=== PATIENT | female | born 2000 | race Caucasian/White ===

== ENCOUNTER 2022-06-16 20:40 | Emergency (ER) | payer MEDICAID, SELFPAY ==
[2022-06-16 20:42] VITALS: BP 130/101; PULSE 104; RESP 12; TEMP 36.8; O2SAT 98
--- NOTE | 2022-06-16 20:45 | DI.RAD_ITS ---
Exam(s) XR HAND RT COMPLETE EXAM: XR HAND RT COMPLETE CLINICAL HISTORY: Crush injury. TECHNIQUE: 2D digital imaging was performed of the right hand. Images were obtained. AP, lateral and oblique views were obtained. COMPARISON: No exams were available for comparison FINDINGS: BONES: No acute fracture is present. No bony destructive lesion is seen. 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 JOINTS: No dislocation present. SOFT TISSUE: Normal. IMPRESSION: Unremarkable radiographs of the right hand. DATA REPOSITORY: RADIATION DOSE DELIVERED:
--- NOTE | 2022-06-16 21:00 | W.ED.GENAD ---
Discharge Plan Disposition Patient Disposition: Home Condition: Stable Discharge Details Clinical Impression: Crushing injury of finger of right hand ED Provider: Sary Rendon Discharge Instructions Instructions: Acute Wound Care (ED) Additional Instructions: Keep clean and dry. You may wash under running soap and water daily. You were given a tetanus booster today. No evidence of fractures or broken bones on the x-ray. Return for any signs of infection including red streaks, drainage or swelling. Please take Tylenol or Ibuprofen with food every 4-6 hours as needed for pain and swelling. Follow up with primary care provider in 3-5 days. Return to ED sooner if any worsening or concerns. Increase oral fluids. Medical Decision Making 21-year-old female presents to the ER with a chief complaint of right middle finger crush injury which occurred just prior to arrival. Patient accidentally closed her finger in a trunk door of a car. She does have some swelling that is small laceration noted to the distal tip of her middle finger. Denies any wrist pain or any other injuries. Is unsure of her tetanus vaccination status. X-ray hand ordered to rule out fracture, wound care, and tetanus booster, and urine test. This text was generated using [employer] dictation system, please disregard any oddities of phrase or misspellings. Imaging Data Radiologic Study: Imaging: X-Ray Radiologist's impression: TECHNIQUE: Imaging protocol: Radiologic exam of the right hand. Views: 3 or more views. COMPARISON: No relevant prior studies available. FINDINGS: Bones/joints: Normal. Soft tissues: Normal. IMPRESSION: No acute findings. Thank you for allowing us to participate in the care of your patient. Dictated and Authenticated by: Rodriguez Michael MD [facility] General Mode of arrival: ambulatory. Date/Time Provider Initiated Documentation: 06/16/22 20:57. Limitations to Documentation: no limitations. Information obtained by: patient, RN notes reviewed and old records reviewed. HPI Narrative: 21-year-old female presents to the ER with a chief complaint of right middle finger crush injury which occurred just prior to arrival. Patient accidentally closed her finger in a trunk door of a car. She does have some swelling that is small laceration noted to the distal tip of her middle finger. Denies any wrist pain or any other injuries. Is unsure of her tetanus vaccination status. Related Data Allergies Allergy/AdvReac Type Severity Reaction Status Date / Time No Known Allergies Allergy Unverified 06/16/22 20:52 General Stated Complaint: Laceration WOO: 4 Review of Systems All systems reviewed & are unremarkable except as noted in HPI and below Integumentary/Breasts Skin/Breast: Reports as per HPI and Reports wounds PFSH All Active Problems (Updated 06/16/22 @ 21:50 by Sary Rendon NP) Crushing injury of finger of right hand (Acute) Social History Smoking/Tobacco Use Status: Current every day Tobacco Type: e-cigarettes Smoking risk assessment performed?: Yes Alcohol Intake: current Alcohol Intake frequency: 3 or more drinks per day Substance use type: marijuana Do you feel safe at home: Yes Do you feel safe in your relationship?: Yes Exam Extrem Right upper extremity: hand Details: swelling and laceration 3rd digit dorsal aspect distal Details: puncture Hand/finger images: 1. Small puncture wound 2. Small puncture wound Course Vital Signs Vital signs: Vital Signs Temperature 36.8 C 06/16/22 20:42 Pulse 104 H 06/16/22 20:42 Respiratory Rate 12 06/16/22 20:42 Blood Pressure 130/101 H 06/16/22 20:42 Pulse Oximetry 98 06/16/22 20:42 Temperature 36.8 C 06/16/22 20:42 Temperature Source Oral 06/16/22 20:42 Pulse 104 H 06/16/22 20:42 Respiratory Rate 12 06/16/22 20:42 Respiratory Effort Normal 06/16/22 20:49 Blood Pressure 130/101 H 06/16/22 20:42 Blood Pressure Position Sitting 06/16/22 20:42 Pulse Oximetry 98 06/16/22 20:42 Oxygen Delivery Method Room Air 06/16/22 20:42 Oxygen Flow Rate 0 06/16/22 20:42 Pain Level 10 06/16/22 20:42 PAWSS Have you Been Recently Intoxicated or Drunk Within the Last 30 days?: Yes Have you Ever Experienced Previous Episodes of Alcohol Withdrawal?: Yes Have you ever Experienced Withdrawal Seizures?: No Have you ever Experienced Delirium Tremens(DT)s?: Yes Have you ever undergone Alcohol Rehabilitation Treatment (i.e, inpt ot outpatient treatment programs)?: Yes Have you ever Experienced Blackouts?: Yes Have you ever Combined Alcohol with other Downers within the last 90 days?: No Have you ever Combined Alcohol with any other Substance of Abuse during the last 90 days?: Yes Positive Blood Alcohol level on Presentation? [PCS.BAL]: Yes Evidence of Increased Autonomic Activity (i.e. HR>120, tremor, sweating, agitation, nausea)?: No Result: 8
--- NOTE | 2022-06-16 21:43 | DI.VRAD_ITS ---
PROCEDURE INFORMATION: Exam: XR Right Hand Exam date and time: 06/16/2022 9:35 PM Age: 21 years old Clinical indication: Pain and injury or trauma; Other: Crush injury; Crushing; Right; Middle finger; Hand; Injury details: Per PT: Closed in trunk of car TECHNIQUE: Imaging protocol: Radiologic exam of the right hand. Views: 3 or more views. COMPARISON: No relevant prior studies available. FINDINGS: Bones/joints: Normal. Soft tissues: Normal. IMPRESSION: No acute findings. Dictated and Authenticated by: Rodriguez Michael MD. Ordering:LACIE Okeefe MD
== END 2022-06-16 22:03 | disposition home or self-care (01) ==
LOC: ER 22:07
PROVIDERS: Emergency Provider Registered Nurse Emergency
DX: S67.192A Crushing injury of right middle finger, initial encounter (principal); S61.212A Laceration without foreign body of right middle finger without damage to nail, initial encounter; W23.0XXA Caught, crushed, jammed, or pinched between moving objects, initial encounter
CPT/HCPCS: 81025; 90471; 99283; 73130

== ENCOUNTER 2022-07-23 01:44 | Emergency (ER) | payer MEDICAID, SELFPAY ==
[2022-07-23 01:43] VITALS: BP 131/70; PULSE 91; RESP 17; TEMP 37.5; O2SAT 99
--- NOTE | 2022-07-23 01:49 | W.ED.GENAD ---
Discharge Plan Disposition Patient Disposition: Home Condition: Good Discharge Details Clinical Impression: Viral URI, COVID-19 Primary Care Provider: None,None ED Provider: Phillip Valdes Discharge Instructions Instructions: Upper Respiratory Infection (ED), COVID-19 (Coronavirus Disease 2019) (ED) Additional Instructions: At this time your symptoms are concerning for coronavirus. Please drink plenty fluids, stay well-hydrated and get plenty of rest. Please take Tylenol and Motrin as needed for fever or chills. Please also take vitamin C and zinc while symptomatic to help with near resolution of your symptoms. We will contact you with the PCR results of your COVID/flu/RSV. I have extensively reviewed the treatment plan and discharge instructions with the patient. I have addressed all patient concerns at this time. The patient was made aware of what symptoms to monitor for that would warrant a return to the emergency department. Discussed the plan with the patient, they demonstrate verbal understanding and agreement with our assessment and plan at this time. The documentation in this chart was dictated using [employer] dictation software. Please excuse any dictation errors. Stand Alone Forms: Work Release Medical Decision Making 22-year-old female with no significant past medical history who presents today for medical evaluation. Patient states that over the last 3 to 4 days she has had congestion, fever, loss of taste, and a few intermittent episodes of vomiting and diarrhea. She does work at [employer]. When she lost her taste she tested herself for COVID, and this was positive. She states that she has had COVID and the shots a few times already. Last episode of any antigen interaction was June 2021. There are other sick contacts at home with identical symptoms. The patient called EMS, EMS noted no vital sign abnormalities but at patient request the patient was brought to the ER for further assessment. Patient denies any chest pain or shortness of breath. She denies any neck pain or stiffness. She is able to keep fluids down at this stage. No other complaints at this time. No other modifying factors. Physical exam demonstrates a well-appearing female, no significant erythema in the posterior pharynx, no nuchal rigidity or neck stiffness. Lungs are notably clear, oxygenation is excellent. Vital signs notably stable with no hypoxemia, tachycardia, hypotension. Patient looks notably clinically well. Suspect potential mild COVID. Patient has no sick clonal antibody therapy or Paxlovid. I did discuss risks and benefits of taking Paxlovid at this stage after she has 3 to 4 days of symptoms already, with her young age in general. The risks and benefits the decision has been made to hold off on Paxlovid for the time being. I have recommended continued fluids at home, [id number] zinc and vitamin C as needed. Recommend continue Tylenol and Motrin. We will give a shot of Toradol here. Patient stable for discharge. No evidence of acute life-threatening etiology at this time based on clinical exam and history. I have extensively reviewed the treatment plan and discharge instructions with the patient. I have addressed all patient concerns at this time. The patient was made aware of what symptoms to monitor for that would warrant a return to the emergency department. Discussed the plan with the patient, they demonstrate verbal understanding and agreement with our assessment and plan at this time. The documentation in this chart was dictated using [employer] dictation software. Please excuse any dictation errors. Patient's COVID test is positive. Patient was informed of these results. HPI General Date/Time Provider Initiated Documentation: 07/23/22 01:48. HPI Narrative: 22-year-old female with no significant past medical history who presents today for medical evaluation. Patient states that over the last 3 to 4 days she has had congestion, fever, loss of taste, and a few intermittent episodes of vomiting and diarrhea. She does work at [employer]. When she lost her taste she tested herself for COVID, and this was positive. She states that she has had COVID and the shots a few times already. Last episode of any antigen interaction was June 2021. There are other sick contacts at home with identical symptoms. The patient called EMS, EMS noted no vital sign abnormalities but at patient request the patient was brought to the ER for further assessment. Patient denies any chest pain or shortness of breath. She denies any neck pain or stiffness. She is able to keep fluids down at this stage. No other complaints at this time. No other modifying factors. Related Data Allergies Allergy/AdvReac Type Severity Reaction Status Date / Time No Known Allergies Allergy Unverified 06/16/22 20:52 General Stated Complaint: Fever WOO: 4 Review of Systems All systems reviewed & are unremarkable except as noted in HPI and below PFSH All Active Problems (Updated 07/23/22 @ 02:58 by Phillip Valdes DO) Viral URI (Acute) COVID-19 (Acute) Social History Smoking/Tobacco Use Status: Current every day Tobacco Type: e-cigarettes Smoking risk assessment performed?: Yes Alcohol Intake: current Alcohol Intake frequency: 3 or more drinks per day Drug use: Occasionally Substance use type: marijuana Do you feel safe at home: Yes Do you feel safe in your relationship?: Yes Exam Narrative Exam Narrative: 1.Const: Well-nourished, Well-developed, appearing stated age 2.Eyes: PERRL, no conjunctival injection, and symmetrical lids. 3.ENT: Atraumatic external nose and ears. Moist MM. Neck: Symmetric, trachea midline, No thyromegaly. Patient demonstrates good movement of cervical neck. There is no nuchal rigidity, no nuchal tenderness. Patient is able to flex the neck without any difficulty or significant pain. Negative Kernig's and Brudzinski sign. 4.CVS: +S1/S2, No murmurs or gallops. Peripheral pulses 2+ and equal in all extremities. Brisk capillary refill in all extremities. 5.RESP: Unlabored respiratory effort. Clear to auscultation bilaterally. No wheezes rales or rhonchi 6.GI: Soft, Nontender/Nondistended, No hepatosplenomegaly. No guarding or rebound. 7.MSK: Normocephalic/Atraumatic, Extremities w/o deformity or ttp No cyanosis or clubbing, Normal movement of all extremities 8.Skin: Warm, Dry. No significant rashes or lesions. There are some dry skin on the arms, but no evidence of hives. Negative Nikolsky sign. No large vesicles or bulla. No palpable purpura. No oral lesions. No mucosal lesions. No evidence of severe cellulitis. No evidence of vaccine preventable rash. 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 Sensation grossly intact, no focal neurologic deficits. 10.Psych: (AAO) x3. Appropriate mood and affect Course Vital Signs Vital signs: Vital Signs Temperature 37.5 C 07/23/22 01:43 Pulse 91 H 07/23/22 01:43 Respiratory Rate 17 07/23/22 01:43 Blood Pressure 131/70 07/23/22 01:43 Pulse Oximetry 99 07/23/22 01:43 Temperature 37.5 C 07/23/22 01:43 Temperature Source Tympanic 07/23/22 01:43 Pulse 91 H 07/23/22 01:43 Respiratory Rate 17 07/23/22 01:43 Respiratory Effort Normal 07/23/22 01:46 Blood Pressure 131/70 07/23/22 01:43 Pulse Oximetry 99 07/23/22 01:43 Oxygen Delivery Method Room Air 07/23/22 01:43 Oxygen Flow Rate 0 07/23/22 01:43 Pain Level 3 07/23/22 01:43
[2022-07-23] MEDS: Ketorolac 30 MG/ML VIAL IM (01:57)
[2022-07-23 02:29] LABS: Influenza A PCR Negative (Negative); Influenza B PCR Negative (Negative); RSV PCR Negative (Negative)
[2022-07-23 02:30] LABS: COVID-19 PCR Positive (Negative); Source Nasopharynx
--- NOTE | 2022-07-23 11:48 | NUR.NOTE ---
Nursing Note: Accessed pt chart to print the discharge instructions and work note. PT asked to have them printed again, she lost them on her way home last night. I printed the instructions and work note, and Dr. Phillips signed the work note. Given to Access for pickup.
== END 2022-07-23 02:31 | disposition home or self-care (01) ==
LOC: ER 02:47
PROVIDERS: Emergency Provider Student in an Organized Health Care Education/Training Program
DX: U07.1 COVID-19 (principal); J06.9 Acute upper respiratory infection, unspecified
CPT/HCPCS: 87637; 96372; 99284; J1885

== ENCOUNTER 2022-08-25 17:51 | Emergency (ER) | payer MEDICAID, SELFPAY ==
[2022-08-25 17:58] VITALS: BP 108/53; PULSE 59; RESP 16; TEMP 37; O2SAT 100
[2022-08-25] MEDS: Normal Saline 1,000 ML 1000 ML IV (18:28)
[2022-08-25] MEDS: Ondansetron 4 MG/2 ML VIAL IVP (18:29)
[2022-08-25 18:32] LABS: Bilirubin Small (Negative); Blood Negative (Negative); Clarity Clear (Clear); Glucose Negative (Negative); Ketones Negative (Negative); Leukocyte Esterase Negative (Negative); Nitrite Negative (Negative); Specific Gravity >= 1.030 (1.005-1.025); Urobilinogen 0.2 mg/dL (Up to 0.2); pH 5.5 (5-8)
[2022-08-25 18:48] LABS: Bacteria Negative HPF (Negative); C & S Indicated? No; Casts Negative LPF (Negative); Crystals Negative HPF (Negative); Epithelial Cells Rare HPF (Negative); Mucus Heavy (Negative); RBC 0-2 HPF (0-2); WBC 0-2 HPF (0-5)
--- NOTE | 2022-08-25 18:50 | NUR.NOTE ---
Nursing Note: patient and boyfriend told this RN they are currently experiencing homelessness she said they are floating around. This RN gave patient community connections phone number and address and advised her to go to them for resources.
--- NOTE | 2022-08-25 19:39 | ED.GENADUL_ITS ---
Discharge Plan Disposition Patient Disposition: Home Condition: Stable Discharge Details Clinical Impression: Gastroenteritis ED Provider: Evon Carpio Home Meds and New Rx's Prescriptions: New Ondansetron Odt, 3 Tabs/Btl [Zofran Odt, 3 Tabs/Btl] 4 mg PO DISPENSE Qty: 0 0RF Discharge Instructions Instructions: Gastroenteritis (ED) Additional Instructions: Continues ondansetron as directed if needed for ongoing nausea and vomiting Can use [id number] antidiarrheal medications as directed Clear liquids advance as tolerated push fluids drinking at least 6 to 8 glasses of water or more daily to stay well-hydrated Referrals: Gayla,Local [ NON-[facility] STAFF PHYSICIAN] - (Follow-up with your primary care provider if needed return here sooner for new or worsening symptoms) Discharge Data Discharge Date/Time-TO BE ENTERED AT DEPARTURE: 08/25/22 20:13 Medical Decision Making <Evon Carpio NP - Last Filed: 08/25/22 20:01> Patient presents with 3 to 4 days of nausea vomiting and diarrhea concern for dehydration. She is hemodynamically stable. Will obtain IV access give a liter normal saline with Zofran 4 mg IV push check UA urine . Her physical exam is reassuring. She responds to the fluids and Zofran with improvement in her symptoms. She was given p.o. challenge and is able to tolerate. Hemodynamically remained stable while being monitored in the emergency department. She feels improved and ready for discharge to home she will be given Zofran 4 mg 3 tabs for home use advised to see PCP or return here sooner for new or worsening symptoms Medical Records Medical records reviewed: Yes I reviewed the patient's medical records. Lab Data Lab results reviewed: Yes I reviewed the patient's lab results. Labs: Laboratory Tests Range/Units 08/25/22 18:16 Urine Color (Yellow) Yellow Urine Clarity (Clear) Clear Urine pH (5-8) 5.5 Ur Specific [place] (1.005-1.025) >= 1.030 H Urine Protein (Negative) mg/dL Trace H Urine Ketones (Negative) mg/dL Negative Urine Blood (Negative) Negative Urine Nitrite (Negative) Negative Urine Bilirubin (Negative) Small H Urine Urobilinogen (Up to 0.2) mg/dL 0.2 Ur Leukocyte Esterase (Negative) Negative Urine RBC (0-2) HPF 0-2 Urine WBC (0-5) HPF 0-2 Ur Epithelial Cells (Negative) HPF Rare Urine Crystals (Negative) HPF Negative Urine Bacteria (Negative) HPF Negative Urine Casts (Negative) LPF Negative Urine Mucus (Negative) Heavy Ur Culture Indicated? No Urine Glucose (Negative) mg/dL Negative <Lb Vigil MD - Last Filed: 10/21/22 09:01> Note: I did not evaluate this patient. I did not participate in the care of this patient. This medical record was inappropriately assigned to me. I notified [facility] and medical records and chart could not be unassigned. HPI <Evon Carpio NP - Last Filed: 08/25/22 20:01> General Mode of arrival: ambulatory . Date/Time Provider Initiated Documentation: 08/25/22 17:54 . Limitations to Documentation: no limitations . Information obtained by: patient . HPI Narrative: Patient presents with a 3-day history of nausea vomiting diarrhea she denies fever. She denies any recent sick contacts with similar symptoms. She is unable to keep down any oral fluids. Denies abdominal pain chest pain lightheadedness Related Data Home Medications Medication Instructions Recorded Confirmed Ondansetron ODT, 3 tabs/btl 4 mg PO DISPENSE ##0 08/25/22 [Zofran ODT, 3 tabs/btl] Previous Rx's Medication Instructions Recorded Ondansetron ODT, 3 tabs/btl 4 mg PO DISPENSE ##0 08/25/22 [Zofran ODT, 3 tabs/btl] Allergies Allergy/AdvReac Type Severity Reaction Status Date / Time No Known Allergies Allergy Unverified 08/25/22 18:05 General Stated Complaint: Nausea/Vomit/Diar WOO: 3 Review of Systems <Evon Carpio NP - Last Filed: 08/25/22 20:01> All systems reviewed & are unremarkable except as noted in HPI and below PFSH <Evon Carpio NP - Last Filed: 08/25/22 20:01> All Active Problems (Updated 10/12/22 @ 00:01 by VICENTE RUIZ) COVID-19 (Acute) Social History Smoking/Tobacco Use Status: Current every day Tobacco Type: cigarettes Smoking risk assessment performed?: Yes Alcohol Intake: current Alcohol Intake frequency: 3 or more drinks per day Drug use: Occasionally Substance use type: marijuana Housing: homeless Do you feel safe at home: Yes Do you feel safe in your relationship?: Yes Additional Social history: homeless right now bouncing from place to place Exam <Evon Carpio NP - Last Filed: 08/25/22 20:01> Const General: ill appearing acutely Nutritional Appearance: overweight Orientation: alert, awake and oriented x3 HENMT Head: normal to inspection, normocephalic and atraumatic Mouth: moist mucous membranes abnormal (Dry oral mucosa) Neck Neck: normal visual inspection Resp Effort & Inspection: normal respiratory effort Auscultation: clear to auscultation bilaterally Cardio Rate: regular rate Rhythm: regular rhythm GI Inspection: normal to inspection Palpation: soft and nontender Skin General skin exam: no rashes or lesions noted Neuro General: patient alert, patient awake, patient oriented x3 and no focal motor deficits Extrem General: normal to inspection and full ROM Course <Evon Carpio NP - Last Filed: 08/25/22 20:01> Vital Signs Vital signs: Vital Signs Temperature 37.0 C 08/25/22 17:58 Pulse 59 L 08/25/22 17:58 Respiratory Rate 16 08/25/22 17:58 Blood Pressure 108/53 L 08/25/22 17:58 Pulse Oximetry 100 08/25/22 17:58 Temperature 37.0 C 08/25/22 17:58 Temperature Source Oral 08/25/22 17:58 Pulse 59 L 08/25/22 17:58 Respiratory Rate 16 08/25/22 17:58 Respiratory Effort Normal, Non-Labored 08/25/22 18:02 Blood Pressure 108/53 L 08/25/22 17:58 Blood Pressure Position Sitting 08/25/22 17:58 Pulse Oximetry 100 08/25/22 17:58 Oxygen Delivery Method Room Air 08/25/22 17:58 Oxygen Flow Rate 0 08/25/22 17:58 Lab/Test Results Lab/Test Results: Laboratory Tests Range/Units 08/25/22 18:16 Urine Color (Yellow) Yellow Urine Clarity (Clear) Clear Urine pH (5-8) 5.5 Ur Specific [place] (1.005-1.025) >= 1.030 H Urine Protein (Negative) mg/dL Trace H Urine Ketones (Negative) mg/dL Negative Urine Blood (Negative) Negative Urine Nitrite (Negative) Negative Urine Bilirubin (Negative) Small H Urine Urobilinogen (Up to 0.2) mg/dL 0.2 Ur Leukocyte Esterase (Negative) Negative Urine RBC (0-2) HPF 0-2 Urine WBC (0-5) HPF 0-2 Ur Epithelial Cells (Negative) HPF Rare Urine Crystals (Negative) HPF Negative Urine Bacteria (Negative) HPF Negative Urine Casts (Negative) LPF Negative Urine Mucus (Negative) Heavy Ur Culture Indicated? No Urine Glucose (Negative) mg/dL Negative POC- Test(urine) Negative
[2022-08-25 20:10] VITALS: BP 114/67; PULSE 89; RESP 18; O2SAT 100
[2022-08-25] MEDS: Ondansetron O.D.T. 4 MG TABEF, 3 TABS/BTL PO (20:10)
== END 2022-08-25 20:13 | disposition home or self-care (01) ==
PROVIDERS: Emergency Provider Nurse Practitioner Acute Care
DX: K52.9 Noninfective gastroenteritis and colitis, unspecified (principal); R11.2 Nausea with vomiting, unspecified
CPT/HCPCS: 81025; 96361; 96374; 99284; 81003; 81015; J2405

== ENCOUNTER 2022-09-11 20:55 | Emergency (ER) | payer MEDICAID, SELFPAY ==
[2022-09-11 20:59] VITALS: BP 105/80; PULSE 106; RESP 18; TEMP 36.7; O2SAT 98
--- OUTSIDE RECORDS SUMMARY | 2022-09-11 21:02 | XMS_ITS | CCD ---
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 Allergies Allergy Code Allergy Type Reaction Status No Known Environmental Allergies 0 No known envir onmental allergies Active No Known Food Allergies 0 No known food allergies Active No Known Drug Allergies 0 No known drug allergies Active Procedures Unknown or Not Available. History of Immunizations Unknown or Not Available. Problems Problem Code Start Date Resolved Date Status Irritable bowel syndrome [id number] Active Results COMPREHENSIVE METABOLIC PANE L (CMP) - Collect Date/Time: 01/16/2022 16:04 Test Name Code Test Result Test Units Test Ref Rang e GLUCOSE 2345-7 119 mg/dL L=70 H=116 BUN 3094-0 13 mg/dL L=6 H=25 CREATININE 2160-0 0.71 mg/dL L=0.51 H=0.95 SODIUM SERUM 2951-2 137 mmol/L L=136 H=145 POTASSIUM SERUM 2823-3 3.7 mmol/L L=3.4 H=5 .2 CHLORIDE SERUM 2075-0 102 mmol/L L=96 H=110 CARBON DIOXIDE (CO2) 2028-9 24 mmol/L L=22 H=34 ANION GAP 51297-2 10.9 mmol/L CALCIUM SERUM 81916-8 8.9 mg/dL L=8.2 H=10. 2 BILIRUBIN TOTAL 1975-2 0.4 mg/dL L=0.0 H=1 .3 ALK. PHOS. 6768-6 77 U/L L=46 H=116 SGOT (AST) 1920-8 20 U/L L=15 H=37 SGPT (ALT) 1742-6 32 U/L L=12 H=78 TOTAL PROTEIN 2885-2 7.8 gm/dL L=6.0 H=8.0 ALBUMIN 1751-7 3.5 gm/dL L=3.4 H=5.0 AGE 21 years eGFR (non-Afr.Amer.) 16268-2 106 mL/min eGFR (Afr-Azerbaijani) 07506-4 >120 mL/min CBC W/ DIFFERENTIAL* - Colle ct Date/Time: 01/16/2022 16:04 Test Name Code Test Result Test Units Test Ref Rang e WBC 6690-2 7.53 th/cmm L=5.00 H=10.00 NEUT % 59.3 % L=40.0 H=80.0 LYMPH % 32.5 % L=10.0 H=50.0 MONO % 24984-8 4.6 % L=2.0 H=12.0 EOS % 3.1 % L=0.0 H=8.0 BASO % 0.4 % L=0.0 H=3.0 IG % 2514-8 0.1 % L=0.0 H=1.1 NRBC % 65836-3 0.0 % L=0.0 H=0.0 NEUT abs count 751-8 4.5 th/cmm L=1.6 H=8. 4 LYMPH abs count 731-0 2.5 th/cmm L=1.5 H=4 .0 MONO abs count 742-7 0.4 th/cmm L=0.2 H=1. 0 EOS abs count 711-2 0.2 th/cmm L=0.0 H=0.5 BASO abs count 704-7 0.0 th/cmm L=0.0 H=0. 2 IG abs count 72549-1 0.0 th/cmm L=0.0 H=0.1 NRBC abs count 27594-2 0.0 mil/cmm L=0.0 H=0. 0 RBC 789-8 4.45 mil/cmm L=3.90 H=5.40 HEMOGLOBIN 718-7 12.3 gm/dL L=12.0 H=16.0 HEMATOCRIT 4544-3 38 % L=37 H=47 MCV 787-2 85 fL L=82 H=92 MCH 785-6 27.6 pg L=27.0 H=31.0 MCHC 786-4 32.5 % L=32.0 H=36.0 RDW-SD 788-0 42.2 fL L=39.0 H=49.0 PLATELET COUNT 777-3 265 th/cmm L=150 H=45 0 GGT (GAMMA GLUTAMYL TRANSFER ASE) - Collect Date/Time: 01/16/2022 16:04 Test Name Code Test Result Test Units Test Ref Rang e Gamma GT 23 N/A <44 HEP A TOTAL ANTIBODY WITH RE FLEX* - Collect Date/Time: 01/16/2022 16:04 Test Name Code Test Result Test Units Test Ref Rang e Hep A Total Ab withReflex Positive N/A Negative HEP B CORE ANTIBODY TOTAL - Collect Date/Time: 01/16/2022 16:04 Test Name Code Test Result Test Units Test Ref Rang e Hep B Core Antibody Negative N/A Negat abi HEP B SURF ANTIBODY* - Colle ct Date/Time: 01/16/2022 16:04 Test Name Code Test Result Test Units Test Ref Rang e HBs Antibody, Quant 7.3 mIU/mL See N ote Hep B Surface Ab Negative N/A See Note HEP B SURF ANTIGEN* - Collec t Date/Time: 01/16/2022 16:04 Test Name Code Test Result Test Units Test Ref Rang e Hep B Surface Ag Negative N/A Negative HIV 1/2 ANTIGEN AND ANTIBODY SCREEN - Collect Date/Time: 01/16/2022 16:04 Test Name Code Test Result Test Units Test Ref Rang e HIV 1/2 Antigen andAntibody Negative N/A Negative Active Medications Unknown or Not Available. Medications Administered During Visit Unknown or Not Available. Encounters Unknown or Not Available. Social History Smoking Status Code Start Date End Date Unknown if ever smoked [id number] Patient Decision Aids Unknown or Not Available. Discharge Instructions You were admitted to [facility] on 01/16/2022 15:50 You had the following tests done:CBC W/ DIFFERENTIAL*COMPREHENSIVE METABOLIC PANEL (CMP)GGT (GAMMA GLUTAMYL TRANSFERASE)HEP A TOTAL ANTIBODY WITH REFLEX*HEP B CORE ANTIBODY TOTALHEP B SURF ANTIBODY*HEP B SURF ANTIGEN*HIV 1/2 ANTIGEN AND ANTIBODY SCREEN You were discharged from [facility] Should you have any questions prior to discharge, please contact a member of your healthcare team. If you have left the hospital and have any questions, please contact your primary care physician. Chief Complaint and Reason For Visit Unknown or Not Available. Function Status Unknown or Not Available. Plan of Care Unknown or Not Available. Referral/Transition of Care Unknown or Not Available.
--- OUTSIDE RECORDS SUMMARY | 2022-09-11 21:02 | XMS_ITS | CCD ---
Author Name Unknown Address [address] [place] [address] [id number] Organization Unknown Address [address] [place] [address] [phone] Care Team Providers Care Engineer Specialist Name Role Phone ARLEN EVANS Attending Physician [phone] ARLEN EVANS Er Physician [phone] ARLETH Godwin Registered Nurse [phone] Vital Signs Vital Sign Value Unit Date/Time Recent/Initial ? BMI (Body Mass Index) 40.77 kg/m^2 01/19/2022 17: 07 Initial VS Weight Measured 245 lbs 01/19/2022 17:07 Ini tial VS Height 65 in 01/19/2022 17:07 Initial VS BSA (Body Surface Area) 2.26 m^2 01/19/2022 1 7:07 Initial VS BP Systolic 103 mmHg 01/19/2022 17:07 Initial VS BP Diastolic 82 mmHg 01/19/2022 17:07 Initia l VS Respiratory Rate 16 bpm 01/19/2022 17:07 In itial VS Heart Rate 116 bpm 01/19/2022 17:07 Initial VS O2 % BldC Oximetry 96 % 01/19/2022 17:07 Initial VS Body Temperature 2.4 degrees 01/19/2022 17:07 In itial VS Allergies Allergy Code Allergy Type Reaction Status No Known Environmental Allergies 0 No known envir onmental allergies Active No Known Food Allergies 0 No known food allergies Active No Known Drug Allergies 0 No known drug allergies Active Procedures Unknown or Not Available. History of Immunizations Unknown or Not Available. Problems Problem Code Start Date Resolved Date Status Irritable bowel syndrome 79691038 Active Results Unknown or Not Available. Active Medications Medications Administered During Visit Medication Dose Units Frequency Route Date/Time of Last Dose POLYETHYLENE GLYCOL PACKET 3350:17GM 17 GRAMS X1 PO 01/19/2022 17:4 8 Encounters Encounter Diagnosis Diagnosis Code Start Date Constipation, unspecified [id number] 2021 Social History Smoking Status Code Start Date End Date Unknown if ever smoked [id number] Patient Decision Aids Unknown or Not Available. Discharge Instructions You were admitted to [facility] on 01/19/2022 17:02 with a principal diagnosis of Constipation, unspecified You were discharged from [facility] on 01/19/2022 17:53 Should you have any questions prior to discharge, please contact a member of your healthcare team. If you have left the hospital and have any questions, please contact your primary care physician. Chief Complaint and Reason For Visit Chief Complaint Date of Onset BLOOD IN STOOL Function Status Unknown or Not Available. Plan of Care Unknown or Not Available. Referral/Transition of Care Unknown or Not Available.
--- NOTE | 2022-09-17 08:25 | ED.GENADUL_ITS ---
Discharge Plan Disposition Patient Disposition: Home Discharge Details Clinical Impression: Hand laceration Primary Care Provider: Gayla,Local ED Provider: Brenda English Home Meds and New Rx's Prescriptions: Continued Ondansetron Odt, 3 Tabs/Btl [Zofran Odt, 3 Tabs/Btl] 4 mg PO DISPENSE Qty: 0 0RF Discharge Instructions Instructions: Laceration (ED) Additional Instructions: Keep the wounds clean and dry The glue will come off on its own, try to refrain from moving the hand is much as possible and make sure you keep it covered and do not submerge directly in water Return earlier should you have new or worsening complaints Discharge Data Discharge Date/Time-TO BE ENTERED AT DEPARTURE: 09/11/22 21:57 Medical Decision Making Right hand with superficial laceration to the palmar aspect of her fifth metacarpal, range of motion intact, neurovascularly intact Wound cleansed and Dermabond applied Patient tolerated procedure without incident Dressing applied after Dermabond had dried Tetanus up-to-date Return precautions discussed and patient expressed understanding HPI General Date/Time Provider Initiated Documentation: 09/11/22 21:46 . HPI Narrative: 22-year-old female presents with laceration to right hand on yarsani just prior to arrival. Denies strength or sensation change. Related Data Home Medications Medication Instructions Recorded Confirmed Ondansetron ODT, 3 tabs/btl 4 mg PO DISPENSE ##0 08/25/22 [Zofran ODT, 3 tabs/btl] Previous Rx's Medication Instructions Recorded Ondansetron ODT, 3 tabs/btl 4 mg PO DISPENSE ##0 08/25/22 [Zofran ODT, 3 tabs/btl] Allergies Allergy/AdvReac Type Severity Reaction Status Date / Time No Known Allergies Allergy Unverified 08/25/22 18:05 General Stated Complaint: Laceration WOO: 3 PFSH All Active Problems (Updated 09/11/22 @ 21:49 by DENISE Steinberg) COVID-19 (Acute) Gastroenteritis (Acute) Hand laceration (Acute) Social History Smoking/Tobacco Use Status: Current every day Tobacco Type: cigarettes Smoking risk assessment performed?: Yes Alcohol Intake: current Alcohol Intake frequency: 3 or more drinks per day Drug use: Occasionally Substance use type: marijuana Housing: homeless Do you feel safe at home: Yes Do you feel safe in your relationship?: Yes Additional Social history: homeless right now bouncing from place to place Course Vital Signs Vital signs: Vital Signs Temperature 36.7 C 09/11/22 20:59 Pulse 106 H 09/11/22 20:59 Respiratory Rate 18 09/11/22 20:59 Blood Pressure 105/80 09/11/22 20:59 Pulse Oximetry 98 09/11/22 20:59 Temperature 36.7 C 09/11/22 20:59 Temperature Source Skin 09/11/22 20:59 Pulse 106 H 09/11/22 20:59 Respiratory Rate 18 09/11/22 20:59 Respiratory Effort Normal 09/11/22 21:02 Blood Pressure 105/80 09/11/22 20:59 Pulse Oximetry 98 09/11/22 20:59 Oxygen Delivery Method Room Air 09/11/22 20:59 Oxygen Flow Rate 0 09/11/22 20:59 Pain Level 8 09/11/22 20:59
== END 2022-09-11 21:57 | disposition home or self-care (01) ==
PROVIDERS: Emergency Provider Physician Assistant
DX: S61.216A Laceration without foreign body of right little finger without damage to nail, initial encounter (principal); W26.8XXA Contact with other sharp object(s), not elsewhere classified, initial encounter
CPT/HCPCS: 99282; 99283

== ENCOUNTER 2023-05-17 16:00 | Emergency (ER) | payer MEDICAID, SELFPAY ==
[2023-05-17 16:06] VITALS: BP 118/59; PULSE 100; RESP 16; TEMP 36.5; O2SAT 98
--- NOTE | 2023-05-17 16:15 | DI.CT_ITS ---
Exam(s) CT UPPER EXTREMITY RT WO EXAM: CT UPPER EXTREMITY RT WO CLINICAL HISTORY: Right index finger swelling, redness TECHNIQUE: Imaging Protocol: Axial computed tomography images with coronal and sagittal reformatted images were created and reviewed. Field of view includes the wrist and hand. CONTRAST MATERIAL: Noncontrast COMPARISON: CR,XR XR HAND RT COMPLETE from 06/16/2022 FINDINGS: Bones: There is no evidence of fracture or dislocation. Bony alignment is satisfactory. 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 No cellulitic or osteomyelitic changes are identified. There is no evidence of joint space narrowing or cystic degeneration seen. No lytic or sclerotic lesions are identified. Soft Tissues: Edema of the distal aspect of the 2nd finger. No foreign body. No abnormal gas colle ction. No evidence of abscess or other drainable fluid collection. The muscles and tendons are unre markable. IMPRESSION: Soft tissue swelling of the 2nd finger. No evidence of abscess. No bony erosion. RADIATION DOSE DELIVERED: Total DLP DATA REPOSITORY: All CT scans at this facility are submitted to the National Radiology Data Registry (NRDR) Dose Index Registry (DIR) with the [employer] (ACR). RADIATION OPTIMIZATION: All CT scans at this facility use at least one of these dose optimization te chniques: automated exposure control; mA and/or kV adjustment per patient size (includes targeted exa ms where dose is matched to clinical indication); or iterative reconstruction.
--- NOTE | 2023-05-17 16:18 | W.ED.GENAD ---
Discharge Plan Disposition Patient Disposition: Home Condition: Stable Discharge Details Clinical Impression: Felon of finger of right hand Primary Care Provider: Unknown,Unknown ED Provider: Sary Rendon Home Meds and New Rx's Prescriptions: New cephalexin 500 mg tablet 500 mg PO BID 10 Days Qty: 20 0RF doxycycline hyclate 100 mg capsule 100 mg PO BID 10 Days Qty: 20 0RF Rx Instructions: Take 1 tablet twice daily for the next 10 days. Discharge Instructions Instructions: Paronychia (ED), Cellulitis (ED) Additional Instructions: You have an infection in your finger. The infected area was lanced and there is an open wound. Please keep the dressing on for the next 12 to 24 hours. After 24 hours you may take the dressing off wash under running soap and water and apply dry dressing. Please have it rechecked in 3 days. Please follow-up with your primary care provider or return here to the ER to have it rechecked. Take the antibiotics as directed with yogurt or probiotic. Please take Tylenol or Ibuprofen with food every 4-6 hours as needed for pain and swelling. Referrals: Gerald Ann MD [ [facility] STAFF PHYSICIAN] - 5 days HPI General Mode of arrival: ambulatory. Date/Time Provider Initiated Documentation: 05/17/23 16:09. Limitations to Documentation: no limitations. Information obtained by: patient, RN notes reviewed and old records reviewed. HPI Narrative: 22-year-old female presents to the ER with a chief complaint of right index finger swelling and discoloration after a fall down some stairs approximately a month ago. Patient reports that she was never seen for this injury. She noticed approximately 5 days ago some discoloration to the tip of her finger. It is purpleish in color, with some red streaks distending down the finger, she does have decreased range of motion to her PIP and DIP joints. She does have some sensation decreased at the tip of her finger. She denies any fever chills or problems with her wrist. Related Data Home Medications Medication Instructions Recorded Confirmed cephalexin 500 mg tablet 500 mg PO BID 10 days #20 tabs 05/17/23 doxycycline hyclate 100 mg capsule 100 mg PO BID cellulitis 10 days 05/17/23 #20 caps Previous Rx's Medication Instructions Recorded cephalexin 500 mg tablet 500 mg PO BID 10 days #20 tabs 05/17/23 doxycycline hyclate 100 mg capsule 100 mg PO BID cellulitis 10 days 05/17/23 #20 caps Allergies Allergy/AdvReac Type Severity Reaction Status Date / Time No Known Allergies Allergy Unverified 05/17/23 16:05 General Stated Complaint: Orthopedic WOO: 3 Review of Systems All systems reviewed & are unremarkable except as noted in HPI and below Constitutional Constitutional: Denies chills and Denies fever(s) Integumentary/Breasts Skin/Breast: Reports as per HPI, Reports erythema, Reports skin pain, Reports skin swelling and Reports wounds Exam Extrem Right upper extremity: hand Details: abnormal to inspection, neurosensory exam abnormal Details: digital nerve sensory function normal Location: in the 2nd digit, abnormal ROM of finger Details: pain with active ROM and unable to flex or extend Location: of the 2nd digit, swelling and ecchymosis Hand/finger images: 1. Swelling, ecchymosis, red streaks Course Vital Signs Vital signs: Vital Signs Temperature 36.5 C 05/17/23 16:06 Pulse 100 H 05/17/23 16:06 Respiratory Rate 16 05/17/23 16:06 Blood Pressure 118/59 L 05/17/23 16:06 Pulse Oximetry 98 05/17/23 16:06 Temperature 36.5 C 05/17/23 16:06 Temperature Source Temporal Artery Scan 05/17/23 16:06 Pulse 100 H 05/17/23 16:06 Respiratory Rate 16 05/17/23 16:06 Respiratory Effort Normal, Non-Labored 05/17/23 16:08 Blood Pressure 118/59 L 05/17/23 16:06 Blood Pressure Position Sitting 05/17/23 16:06 Pulse Oximetry 98 05/17/23 16:06 Oxygen Delivery Method Room Air 05/17/23 16:06 Oxygen Flow Rate 0 05/17/23 16:06 Pain Level 9 05/17/23 16:06 Procedures Abscess I/D Site: Hand (index finger) Side (if applicable): Right Sedation/analgesia: None Local Anesthetic: Lidocaine 1% and With Epi Amount of anesthesia used (mL): 3 Technique: Incised with #11 Blade Amount of fluid expressed (mL): 0 Irrigation: No Packing used?: None Complications: Pain Medical Decision Making 22-year-old female presents to the ER with a chief complaint of right index finger swelling and discoloration after a fall down some stairs approximately a month ago. Patient reports that she was never seen for this injury. She noticed approximately 5 days ago some discoloration to the tip of her finger. It is purpleish in color, with some red streaks distending down the finger, she does have decreased range of motion to her PIP and DIP joints. She does have some sensation decreased at the tip of her finger. She denies any fever chills or problems with her wrist. CT right upper extremity ordered Ddx Néstor cellulitis, Discussed with Dr. Vigil patient case, he agrees for need for I&D, patient informed of procedure and verbalizes understanding and is in agreement with procedure. Will place topical LET and incise laterally and drain. Area lanced with #11 blade no fluid expressed, left open Xeroform dressing applied and dressed. Instructed patient to be seen in 3 days. Will send home with Cephalexin and Doxycycline. Instructed to keep dressing on for 12-24 hours. Given Cephalexin and Doxycyclin to go. Instructed to be re-checked in 3 days. This text was generated using [employer] system, please disregard any oddities of phrase or misspellings. T Imaging Data Radiologic Study: Imaging: CT Scan Radiologist's impression: Age: 22 years old Clinical indication: Swelling and other: Redness; Fingers and hand; Patient HX: Right index finger swelling, redness TECHNIQUE: Imaging protocol: Computed tomography of the right upper extremity without contrast. Exam focused on the hand. COMPARISON: CR XR HAND RT COMPLETE 06/16/2022 9:35 PM FINDINGS: Bones/joints: The distal radius and ulna, carpal bones, metacarpals and phalanges are intact. No fractures. No bone destruction or osteolysis. Joint spaces are preserved. No periarticular erosive change. Soft tissues: Right 2nd finger edema/cellulitis. No encapsulated fluid collection or abscess. No soft tissue gas. IMPRESSION: 1. Second finger edema/cellulitis. No abscess. 2. No evidence of osteomyelitis. Quality:SDOH Health Related Social Needs: No Data to Display PFSH All Active Problems (Updated 05/17/23 @ 17:50 by Sary Rendon NP) Felon of finger of right hand (Acute) COVID-19 (Acute) Social History Smoking/Tobacco Use Status: Current every day Tobacco Type: cigarettes Smoking risk assessment performed?: Yes Alcohol Intake: current Alcohol Intake frequency: 3 or more drinks per day Drug use: Occasionally Substance use type: marijuana Housing: homeless Do you feel safe at home: Yes Do you feel safe in your relationship?: Yes Additional Social history: homeless right now bouncing from place to place
[2023-05-17] MEDS: Doxycycline Hyclate 100 MG CAP PO (16:37)
[2023-05-17] MEDS: Cephalexin 500 MG CAP PO (16:37)
--- NOTE | 2023-05-17 17:32 | DI.VRAD_ITS ---
PROCEDURE INFORMATION: Exam: CT Right Upper Extremity Without Contrast, Hand Exam date and time: 05/17/2023 4:52 PM Age: 22 years old Clinical indication: Swelling and other: Redness; Fingers and hand; Patient HX: Right index finger swelling, redness TECHNIQUE: Imaging protocol: Computed tomography of the right upper extremity without contrast. Exam focused on the hand. COMPARISON: CR XR HAND RT COMPLETE 06/16/2022 9:35 PM FINDINGS: Bones/joints: The distal radius and ulna, carpal bones, metacarpals and phalanges are intact. No fractures. No bone destruction or osteolysis. Joint spaces are preserved. No periarticular erosive change. Soft tissues: Right 2nd finger edema/cellulitis. No encapsulated fluid collection or abscess. No soft tissue gas. IMPRESSION: 1. Second finger edema/cellulitis. No abscess. 2. No evidence of osteomyelitis. Dictated and Authenticated by: Kumar Washburn MD. Ordering:LACIE Okeefe MD
[2023-05-17] MEDS: Lidocaine/Epinephri/Tetracaine Topical Gel 3 ML TP (17:39)
[2023-05-17] MEDS: Doxycycline Hyclate 100 MG, 2 CAPS/BTL PO (18:25)
[2023-05-17] MEDS: Cephalexin 500 MG CAP, 2 CAPS/BTL PO (18:25)
[2023-05-17 18:47] VITALS: BP 118/59; PULSE 100; RESP 16; TEMP 36.5; O2SAT 98
--- NOTE | 2023-05-20 08:43 | W.ED.FU ---
Date of service: 05/20/23 Time of Service: 08:43 Follow Up Plan: 0846: Call made to patient regarding follow up for her finger, she reports that her pain is better and she has increased range of motion, she states that she will make an appointment with Orthopedics. I did encourage her to return or at least be seen again for a re-check, she verbalizes understanding. She states she is taking the antibiotics as prescribed. She denies any new drainage.
== END 2023-05-17 18:47 | disposition home or self-care (01) ==
PROVIDERS: Emergency Provider Registered Nurse Emergency
DX: M79.641 Pain in right hand (principal); L03.011 Cellulitis of right finger; S67.190D Crushing injury of right index finger, subsequent encounter; W26.0XXD Contact with knife, subsequent encounter
CPT/HCPCS: 10060; 81025; 99284; 73200; 99283

== ENCOUNTER 2023-06-29 18:25 | Emergency (ER) | payer MEDICAID, SELFPAY ==
[2023-06-29 18:33] VITALS: BP 150/87; PULSE 101; RESP 16; TEMP 36.7; O2SAT 99
--- NOTE | 2023-06-29 18:59 | ED.GENADUL_ITS ---
Discharge Plan Disposition Patient Disposition: Home Condition: Stable Discharge Details Clinical Impression: Threatened miscarriage in early Primary Care Provider: None,None ED Provider: Sary Rendon Home Meds and New Rx's Prescriptions: No Action fluoxetine 20 mg capsule 20 mg PO BID Patient Comments: TAKE ONE CAPSULE BY MOUTH EVERY DAY MAY INCREASE TO 2 CAPSULE DAILY Discharge Instructions Instructions: Threatened Miscarriage (ED) Additional Instructions: At this time your urine test is negative and your blood hCG levels are less than 1 which is very very low. I suspect that you are having a miscarriage however the definitive diagnosis can only be made by ultrasound. Please call the number on the radiology form to schedule a ultrasound within the next 1 to 2 days and come to the ER for the results. Return to the ER sooner for bleeding more than 1 pad an hour, dizziness lightheadedness passing large clots or any worsening. Practice pelvic rest until cleared by EXPEDITER SERVICE ORDER or your primary care provider. Please call to make an appointment with [facility]. Do not use tampons only use pads and you have sexual intercourse. Referrals: [facility] [Provider Group] - 1 day (Please call to make an appointment) Discharge Data Discharge Date/Time-TO BE ENTERED AT DEPARTURE: 06/29/23 20:15 HPI General Mode of arrival: ambulatory . Date/Time Provider Initiated Documentation: 06/29/23 18:57 . Limitations to Documentation: no limitations . Information obtained by: patient, RN notes reviewed and old records reviewed . HPI Narrative: 23-year-old female presents to the ER with vaginal bleeding which began 2 days ago. Patient reports that she had a positive test on May 10. She reports this is her first . She also endorses abdominal cramping. She reports 1 tampon an hour. Has not been seen by EXPEDITER SERVICE ORDER for this . She endorses vaping denies any smoking otherwise or drugs. She also reports alcohol but none since finding out she was . Related Data Home Medications Medication Instructions Recorded Confirmed fluoxetine 20 mg capsule 20 mg PO BID 06/29/23 06/29/23 Allergies Allergy/AdvReac Type Severity Reaction Status Date / Time No Known Allergies Allergy Unverified 06/29/23 18:32 General Stated Complaint: EXPEDITER SERVICE ORDER WOO: 4 Review of Systems All systems reviewed & are unremarkable except as noted in HPI and below Gastrointestinal Gastrointestinal: Reports abdominal pain Genitourinary Genitourinary: Reports abnormal vaginal bleeding Exam Narrative Exam Narrative: Constitutional: Alert and oriented x3. Appears stated age. Obese body habitus. Head: Normocephalic, no trauma. Chest: RRR, Normal S1, S2, distal pulses intact. Resp: Lungs clear to auscultation bilaterally, no wheezes, rales, or rhonchi. Abdomen: Soft, non-distended, Normoactive bowel sounds all 4 quads. : See below Musculoskeletal: Normal gait, Moves all 4 extremities without difficulty. Skin: No suspicious rashes or lesions. Capillary refill less than 2 sec. Neurologic: Cranial nerves II-XII intact. Alert and oriented x 3. Motor: No deficits noted. Sensory: Intact bilaterally all 4 extremities. External Female Exam: normal external appearance Speculum Exam - Vagina: normal vaginal discharge, vaginal bleeding and no masses Speculum Exam - Cervix: normal appearance of the cervix, no lesions and no masses OB/External & Speculum: vaginal bleeding Course Vital Signs Vital signs: Vital Signs Temperature 36.7 C 06/29/23 18:33 Pulse 101 H 06/29/23 18:33 Respiratory Rate 16 06/29/23 18:33 Blood Pressure 150/87 H 06/29/23 18:33 Pulse Oximetry 99 06/29/23 18:33 Temperature 36.7 C 06/29/23 18:33 Temperature Source Temporal Artery Scan 06/29/23 18:33 Pulse 101 H 06/29/23 18:33 Respiratory Rate 16 06/29/23 18:33 Respiratory Effort Normal, Non-Labored 06/29/23 18:38 Blood Pressure 150/87 H 06/29/23 18:33 Blood Pressure Position Sitting 06/29/23 18:33 Pulse Oximetry 99 06/29/23 18:33 Oxygen Delivery Method Room Air 06/29/23 18:33 Oxygen Flow Rate 0 06/29/23 18:33 Pain Level 8 06/29/23 18:40 Lab/Test Results Lab/Test Results: POC- Test(urine) Negative Medical Decision Making 23-year-old female presents to the ER with vaginal bleeding which began 2 days ago. Patient reports that she had a positive test on May 10. She reports this is her first . She also endorses abdominal cramping. She reports 1 tampon an hour. Has not been seen by EXPEDITER SERVICE ORDER for this . She endorses vaping denies any smoking otherwise or drugs. She also reports alcohol but none since finding out she was . CBC CMP Rh type hCG quant ordered. POC urine test negative which was done here by staff educator. Will perform pelvic exam to visualize cervical os. Discussed patient to come back for vaginal ultrasound to confirm presence or absence of intrauterine . Pelvic exam performed with Pamela KHAN patient tolerated well, there was small amount of blood oozing from the cervical os, intermittently. No lesions noted no discharge. hCG quant is less than 1, will order an outpatient ultrasound to be done within the next 1 to 2 days. Suspect miscarriage. Will have patient follow-up in the ER for ultrasound results. This text was generated using [employer] dictation system, please disregard any oddities of phrase or misspellings. Lab Data Lab results reviewed: Yes I reviewed the patient's lab results. Labs: Laboratory Tests Range/Units 06/29/23 06/29/23 06/29/23 18:54 19:05 19:20 WBC (4.4-10.8) 10^3/uL 7.40 RBC (3.93-5.22) 10^6/uL 4.34 Hgb (11.2-15.7) g/dL 12.0 Hct (36.0-46.0) % 38.4 MCV (80-95) fL 89 MCH (27.0-33.0) pg 27.6 MCHC (32.0-36.0) % 31.3 L RDW (11.7-14.6) % 15.8 H Plt Count (130-400) 10^3/uL 248 MPV (8.0-11.0) fL 11.3 H Immature Gran % % 0.3 Neutrophils % % 60.4 Lymphocytes % % 31.6 Monocytes % % 6.2 Eosinophils % % 1.2 Basophils % % 0.3 Nucleated RBC % (0.0-0.3) % 0.0 Absolute Neutrophils (1.2-6.7) 10^3/uL 4.47 Absolute Lymphocytes (1.2-3.4) 10^3/uL 2.34 Absolute Monocytes (0.1-0.8) 10^3/uL 0.46 Absolute Eosinophils (0.0-0.7) 10^3/uL 0.09 Absolute Basophils (0.0-0.2) 10^3/uL 0.02 Sodium (136-145) mmol/L 142 Potassium (3.5-5.1) mmol/L 4.0 Chloride (98-107) mmol/L 102 Carbon Dioxide (21.0-32.0) mmol/L 28.0 Anion Gap (3-11) mmol/L 12.0 H BUN (7-18) mg/dL 9 Creatinine (0.55-1.02) mg/dL 0.8 Est GFR (CKD-EPI 2020) (mL/min/1.73m2) 107.44 Glucose (74-106) mg/dL 85 Calcium (8.5-10.1) mg/dL 9.1 Total Bilirubin (0.2-1.0) mg/dL 0.4 AST (15-37) U/L 25 ALT (14-59) U/L 27 Alkaline Phosphatase (46-116) U/L 95 Total Protein (6.4-8.2) g/dL 7.8 Albumin (3.4-5.0) g/dL 3.7 Beta HCG, Quant (1-3) mIU/mL < 1 L Urine Color (Yellow) Yellow Urine Clarity (Clear) Clear Urine pH (5-8) 6.0 Ur Specific [place] (1.005-1.025) 1.020 Urine Protein (Neg-Trace) mg/dL Negative Urine Ketones (Negative) mg/dL Negative Urine Blood (Negative) Moderate H Urine Nitrite (Negative) Negative Urine Bilirubin (Negative) Negative Urine Urobilinogen (Up to 0.2) mg/dL 0.2 Ur Leukocyte Esterase (Negative) Negative Urine RBC (0-2) HPF 3-5 H Urine WBC (0-5) HPF Negative Ur Epithelial Cells (Negative) HPF Many Urine Crystals (Negative) HPF Negative Urine Bacteria (Negative) HPF Negative Urine Mucus (Negative) Moderate Ur Culture Indicated? No Urine Glucose (Negative) mg/dL Negative ABO/Rh A Positive Quality:SDOH Health Related Social Needs: No Data to Display PFSH All Active Problems (Updated 06/29/23 @ 20:05 by Sary Rendon NP) Threatened miscarriage in early (Acute) COVID-19 (Acute) Social History Smoking/Tobacco Use Status: Current every day Tobacco Type: cigarettes Smoking risk assessment performed?: Yes Alcohol Intake: current Alcohol Intake frequency: 3 or more drinks per day Drug use: Occasionally Substance use type: marijuana Housing: homeless Do you feel safe at home: Yes Do you feel safe in your relationship?: Yes Additional Social history: homeless right now bouncing from place to place
[2023-06-29 19:28] LABS: Abs Immature Grans 0.02 10^3/uL (0.0-0.06); Absolute Basophil Count 0.02 10^3/uL (0.0-0.2); Absolute Eosinophil Count 0.09 10^3/uL (0.0-0.7); Absolute Lymphocyte Count 2.34 10^3/uL (1.2-3.4); Absolute Monocyte Count 0.46 10^3/uL (0.1-0.8); Absolute Neutrophil Count 4.47 10^3/uL (1.2-6.7); Basophils % 0.3 %; Eosinophils % 1.2 %; HCT 38.4 % (36.0-46.0); Immature Grans % 0.3 %; Lymphocytes % 31.6 %; MCH 27.6 pg (27.0-33.0); MCHC 31.3 % (32.0-36.0); MCV 89 fL (80-95); MPV 11.3 fL (8.0-11.0); Monocytes % 6.2 %; Neutrophils % 60.4 %; Platelet Count 248 10^3/uL (130-400); RBC 4.34 10^6/uL (3.93-5.22); RDW 15.8 % (11.7-14.6); RDW-SD 51.7 fL
[2023-06-29 19:54] LABS: ALT 27 U/L (14-59); AST 25 U/L (15-37); Albumin 3.7 g/dL (3.4-5.0); Alkaline Phosphatase 95 U/L (46-116); BUN 9 mg/dL (7-18); Bilirubin, Total 0.4 mg/dL (0.2-1.0); CREATININE 0.8 mg/dL (0.55-1.02); Calcium 9.1 mg/dL (8.5-10.1); Chloride 102 mmol/L (98-107); Estimated GFR 107.44 (mL/min/1.73m2); Glucose 85 mg/dL (74-106); HCG Quant, Pregnancy < 1 mIU/mL (1-3); Sodium 142 mmol/L (136-145); Total Protein 7.8 g/dL (6.4-8.2)
[2023-06-29] MEDS: Acetaminophen 500 MG TAB PO (20:05)
--- NOTE | 2023-06-29 20:08 | NUR.NOTE ---
Ultrasound requisition faxed to [facility], patient given pelvic ultrasound instructions. Patient advised to call [facility] scheduling anytime after 7am 06/30/23 to schedule appt.Nursing Note:
[2023-06-29 20:14] VITALS: BP 130/80; PULSE 90; RESP 16; O2SAT 99
[2023-06-29 20:15] VITALS: BP 130/80; PULSE 90; RESP 16; TEMP 36.7; O2SAT 99
[2023-06-29 20:15] LABS: Bilirubin Negative (Negative); Blood Moderate (Negative); Clarity Clear (Clear); Glucose Negative (Negative); Ketones Negative (Negative); Leukocyte Esterase Negative (Negative); Nitrite Negative (Negative); Urobilinogen 0.2 mg/dL (Up to 0.2)
[2023-06-29 20:30] LABS: Bacteria Negative HPF (Negative); C & S Indicated? No; Crystals Negative HPF (Negative); Epithelial Cells Many HPF (Negative); Mucus Moderate (Negative); WBC Negative HPF (0-5)
== END 2023-06-29 20:15 | disposition home or self-care (01) ==
PROVIDERS: Emergency Provider Registered Nurse Emergency
DX: O20.9 Hemorrhage in early pregnancy, unspecified (principal); O20.0 Threatened abortion; O99.331 Smoking (tobacco) complicating pregnancy, first trimester; F17.210 Nicotine dependence, cigarettes, uncomplicated; Z3A.01 Less than 8 weeks gestation of pregnancy
CPT/HCPCS: 80053; 81025; 86900; 86901; 99283; 81003; 81015; 84702; 85025

== ENCOUNTER → 2023-07-03 00:14 | Outpatient (CLI) | payer MEDICAID, SELFPAY ==
--- NOTE | 2023-07-03 | DI.US_ITS ---
Exam(s) US OB 1ST TRIMESTER EXAM: US OB 1ST TRIMESTER CLINICAL HISTORY: Vaginal bleeding in ,approved per issa Yang per radiologist protoco. COMPARISON: No exams were available for comparison TECHNIQUE: Transvaginal first trimester obstetrical ultrasound performed. FINDINGS: The uterus measures 6.9 long by 2.8 AP by 3.9 transverse cm. The endometrial stripe measures 6 mm in diameter. No intrauterine gestational sac is present. The myometrium is unremarkable. The cervix is unremarkable. There is a small amount of fluid seen within the cervical endometrium. The right ovary measures 3.9 x 2.1 x 3.1 cm. Small follicular cysts are present. The left ovary measures 4.4 x 2.1 x 2.7 cm. There is a 2.0 x 1.5 cm simple cyst on the left ovary. There is normal blood flow to both ovaries. There are several bowel loops seen adjacent to the right ovary and in the cul-de-sac. No definite ad nexal mass is seen to suggest an ectopic . There is a small amount of free fluid in the cul-de-sac. IMPRESSION: 1. No evidence of an intrauterine gestational sac. Please correlate with the patient's clinical hist ory and beta HCG levels. 2. No definite evidence of an ectopic at this time. 3. Follow-up pelvic ultrasound may be obtained depending on the clinical correlation. DATA REPOSITORY:
== END ==
PROVIDERS: Visit Provider Registered Nurse Emergency
DX: O20.0 Threatened abortion (principal)
CPT/HCPCS: 76801

== ENCOUNTER 2023-07-03 10:23 | Emergency (ER) | payer MEDICAID, SELFPAY ==
[2023-07-03 10:30] VITALS: BP 113/74; PULSE 79; RESP 16; TEMP 36.8; O2SAT 99
--- NOTE | 2023-07-03 10:42 | ED.GENADUL_ITS ---
Discharge Plan Disposition Patient Disposition: Home Condition: Stable Discharge Details Clinical Impression: Pelvic cramping Primary Care Provider: None,None ED Provider: Quintin Feliciano Home Meds and New Rx's Prescriptions: Continued fluoxetine 20 mg capsule 20 mg PO BID Patient Comments: TAKE ONE CAPSULE BY MOUTH EVERY DAY MAY INCREASE TO 2 CAPSULE DAILY Discharge Instructions Additional Instructions: Your ultrasound today did not show any abnormalities Follow-up with your primary care provider woman's wellness within 1 to 2 weeks especially if symptoms continue If you feel more ill or have severe worsening pain or new symptoms such as difficulty breathing return to the emergency department for reevaluation HPI General Mode of arrival: ambulatory . Date/Time Provider Initiated Documentation: 07/03/23 10:25 . Limitations to Documentation: no limitations . Information obtained by: patient . History of Present Illness 23 year old F presents to the emergency department with the chief complaint of Imaging results, described as mild, Patient started experiencing this week(s) (2) and it has been intermittent. No relieving factors improve symptom(s), No exacerbating factors reported . Patient notes denies fever/chills. 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: 5 Review of Systems All systems reviewed & are unremarkable except as noted in HPI and below Constitutional Constitutional: Denies chills, Denies fever(s) and Denies weakness Cardiovascular Cardiovascular: Denies chest pain and Denies dyspnea Respiratory Respiratory: Denies cough and Denies dyspnea Gastrointestinal Gastrointestinal: Denies abdominal pain, Denies nausea and Denies vomiting Musculoskeletal Musculoskeletal: Denies joint swelling Neurologic Neurologic: Denies weakness Exam Const General: no acute distress Orientation: alert HENMT Head: normal to inspection Ears: external ears normal General nose exam: external nose normal Mouth: moist mucous membranes Eyes General: appearance normal, both eyes and all related structures Neck Neck: normal visual inspection Resp Effort & Inspection: normal respiratory effort and able to speak in complete sentences Cardio Rate: regular rate GI Palpation: soft and nontender Skin General skin exam: no rashes or lesions noted Neuro General: patient alert and patient oriented x3 Extrem General: normal to inspection Psych Mental Status: mental status grossly normal Course Vital Signs Vital signs: Vital Signs Temperature 36.8 C 07/03/23 10:30 Pulse 79 07/03/23 10:30 Respiratory Rate 16 07/03/23 10:30 Blood Pressure 113/74 07/03/23 10:30 Pulse Oximetry 99 07/03/23 10:30 Temperature 36.8 C 07/03/23 10:30 Temperature Source Temporal Artery Scan 07/03/23 10:30 Pulse 79 07/03/23 10:30 Respiratory Rate 16 07/03/23 10:30 Respiratory Effort Normal, Non-Labored 07/03/23 10:32 Blood Pressure 113/74 07/03/23 10:30 Blood Pressure Position Sitting 07/03/23 10:30 Pulse Oximetry 99 07/03/23 10:30 Oxygen Delivery Method Room Air 07/03/23 10:30 Oxygen Flow Rate 0 07/03/23 10:30 Pain Level 7 07/03/23 10:30 Comment no meds today 07/03/23 10:30 Medical Decision Making 23-year-old female who denies any significant past medical history comes in hav ing an ultrasound done. She was seen on the fifth of this month for vaginal bleeding and pelvic cramping after reportedly having a home test prior to this. There is no ultrasound when she was seen here in the ED, her test while she was here was negative on that day. Her ultrasound today showed no abnormalities per the senior mechanical technician, ovaries appeared normal with normal flow, no evidence of ectopic, no evidence of recent . Patient is feeling better says she has some light bleeding which is improved and intermittently will have some mild pelvic cramping but states this is improving as well. Her abdomen is soft and nontender. Given reassuring ultrasound and exam do not feel any further testing indicated, she will follow-up with her primary care woman's wellness, return precautions given Differential Diagnosis Differential Diagnosis: Dysfunctional uterine bleeding, miscarriage Quality:SDOH Health Related Social Needs: No Data to Display PFSH All Active Problems (Updated 07/03/23 @ 10:43 by Quintin Feliciano MD) Pelvic cramping (Acute) Threatened miscarriage in early (Acute) COVID-19 (Acute) Social History Smoking/Tobacco Use Status: Current every day Tobacco Type: cigarettes Smoking risk assessment performed?: Yes Alcohol Intake: current Alcohol Intake frequency: 3 or more drinks per day Drug use: Occasionally Substance use type: marijuana Housing: homeless Do you feel safe at home: Yes Do you feel safe in your relationship?: Yes Additional Social history: homeless right now bouncing from place to place
== END 2023-07-03 10:46 | disposition home or self-care (01) ==
LOC: ER 12:00
PROVIDERS: Emergency Provider Emergency Medicine
DX: R10.2 Pelvic and perineal pain (principal)
CPT/HCPCS: 99281; 99282